=== PATIENT | male | born 1965 | race Caucasian/White ===

== ENCOUNTER 2023-05-15 15:16 | Outpatient (OUT) | payer OTHER, SELFPAY ==
--- NOTE | 2023-05-15 15:23 | XR_ITS ---
The [address] [address] Patient Name: GIOVANNI DEVLIN MRN: [id number] date: 1965 Sex: M Assigned Patient Location: [facility] Current Patient Location: Accession/Order Number: [id number] Exam Date: 05/15/2023 15:30 Report Date: 05/16/2023 07:07 At the request of: KAM ADAMS Procedure: XR lumbar spine 2-3V EXAMINATION: XR lumbar spine 2-3V HISTORY: back pain, left lower extremity radiculopathy COMPARISON: No relevant comparison available. FINDINGS: BONES: No acute fracture or spondylolisthesis. Minimal degenerative spondylosis and mild facet osteoarthropathy DISC SPACES: Normal. No significant disc height narrowing, subluxation, or endplate abnormality. PARASPINOUS: Negative. No paraspinous abnormality is seen. OTHER: Negative. XR/XR lumbar spine 2-3V IMPRESSION: No acute radiographic abnormality Electronically authenticated by: GIOVANNI GAFFNEY Date: 05/16/2023 07:07
== END 2023-05-15 15:17 | disposition home or self-care (01) ==
LOC: RAD 15:18
PROVIDERS: PCP Family Medicine; Visit Provider Family Medicine
DX: M54.50 Low back pain, unspecified (principal); M54.16 Radiculopathy, lumbar region
CPT/HCPCS: 72100

== ENCOUNTER 2023-05-21 20:22 | Emergency (ER) | payer OTHER, SELFPAY ==
[2023-05-21 20:28] VITALS: BP 160/98; PULSE 98; RESP 16; TEMP 37; O2SAT 97; BMI 30.7
--- OUTSIDE RECORDS SUMMARY | 2023-05-21 20:28 | XMS_ITS | CCD ---
Author Name Unknown Address [address] [place] [address] Organization [facility] Care Team Providers Care Divemaster Name Role Phone Sasha Cha Unavailable DR KAM MANNING Attending Unavailable DR KAM MANNING Consulting Unavailable DR KAM MANNING Admitting Unavailable Shaylee Manning Unavailable Maryana Pires Unavailable Medications Current Medications Medication Drug Class(es) Dates Sig (Normalized) Sig (Original) amoxicillin 875 mg / clavulanate 125 mg oral tablet (1 source) Penicillin-class Antibacterial Start: 04-17-2022 take 1 tablet by mouth every twelve hours Amoxicillin-Pot Clavulanate 875-125 MG 1 tablet Orally every 12 hrs for 10 days Apr, Active cefdinir 300 mg oral capsule (1 source) Cephalosporin Antibacterial Start: 12-21-2022 take 1 capsule by mouth every twelve hours Cefdinir 300 MG 1 Tablet Orally bid for 10 days Dec, Active cyclobenzaprine hydrochloride 10 mg oral tablet (1 source) Muscle Relaxant Start: 02-20-2021 take 1 tablet by mouth every eight hours Cyclobenzaprine HCl 10 MG 1 tablet as needed Orally Three times a day for 10 days Feb, Active dextromethorphan hydrobromide 15 mg / guaiFENesin 400 mg / pseudoephedrine hydrochloride 60 mg oral tablet (2 sources) alpha-Adrenergic Agonist, Uncompetitive E-fcitnc-V-aspartat e Receptor Antagonist, Sigma-1 Agonist Start: 12-18-2022 take 4 tablets by mouth every twenty-four hours as needed Capmist DM 60-15-400 MG as needed Orally every 4-6 hours as needed, max 4 tablets in 24 hours for 5 days Dec, Active fluticasone propionate 0.05 mg/actuat metered dose nasal spray (1 source) Corticosteroid Start: 04-17-2022 take 1 spray(s) nasal route once daily Fluticasone Propionate 50 MCG/ACT 1 spray in each nostril Nasally Once a day for 21 days Apr, Active predniSONE 20 mg oral tablet (2 sources) Start: 12-18-2022 take 1 tablet by mouth every twelve hours prednisone 20 MG 1 tablet Orally BID for 5 12 Dec, 2022 Active Completed/Discontinued Medications Medication Drug Class(es) Dates Sig (Normalized) Sig (Original) azithromycin 250 mg oral tablet (3 sources) Macrolide Antimicrobial Start: 3 Azithromycin 250 MG 2 tablets on the first day, then 1 tablet daily for 4 days Orally Once a day for 5 day(s) May, Not-Taking methylPREDNISolone 4 mg oral tablet (4 sources) Corticosteroid Start: 3 methylPREDNISolone 4 MG as directed Orally Once a day for 6 days May, Not-Taking Start: 02-20-2021 methylPREDNISo lone 4 MG as directed Orally Once a day for 6 days Feb, Active oseltamivir 75 mg oral capsule (2 sources) Neuraminidase Inhibitor Start: 01-18-2019 take 1 capsule by mouth every twelve hours Tamiflu 75 MG 1 capsule Orally Twice a day for 5 day(s) Jan, Not-Taking Problems Problem Classification Problem Date Documented Da te Episodic/Chronic Chronic obstructive pulmonary disease and bronchiectasis (1 source) Bronchitis, not specified as acute or chronic Episodic Other upper respiratory infections (4 sources) Acute sinusitis, unspecified; Translations: [Acute upper respiratory infection, unspecified] Episodic Spondylosis; intervertebral disc disorders; other back problems (6 sources) Sciatica; Translations: [Sciatica, left side] Onset: 02-20-2021 Resolved: 02-20-2021 Episodic Viral infection (1 source) Other viral agents as the cause of diseases classified elsewhere Episodic Results Test Name Value Interpretation Reference Range Facility COVID Quick Testingon 2022 Result Negative [facility] Other Quick Strepon 12-18-2022 S. pyogenes Org specific cx Ql (Throat) Negative [facility] Other Quick Strep [facility] Other [facility] CBC AUTO DIFFon 11-23-2021 BASO # 0.0 103/ul Normal 0.0-0.1 [facility] Comment on above: Performed By: #### H FPFCBC #### [facility] [address] [place] [address] Dr. Tala Lees Basophils/100 WBC (Bld) 0.6 % Normal 0.2-2.0 [facility] Comment on above: Performed By: #### H FPFCBC #### [facility] [address] [place] [address] Dr. Tala Lees EO # 0.1 103/ul Normal 0.0-0.7 [facility] Comment on above: Performed By: #### H FPFCBC #### [facility] [address] [place] [address] Dr. Tala Lees Eosinophils/100 WBC (Bld) 1.3 % Normal 0.9-7.0 [facility] Comment on above: Performed By: #### H FPFCBC #### [facility] [address] [place] [address] Dr. Tala Lees Erythrocyte distribution width (RBC) [Ratio] 12.2 % Normal 11.0-15.0 [facility] Comment on above: Performed By: #### H FPFCBC #### [facility] [address] [place] [address] Dr. Tala Lees Hematocrit (Bld) [Volume fraction] 45.3 % Normal 42.0-54.0 [facility] Comment on above: Performed By: #### H FPFCBC #### [facility] [address] [place] [address] Dr. Tala Lees Hemoglobin (Bld) [Mass/Vol] 15.8 g/dL Normal 14.0-18.0 [facility] Comment on above: Performed By: #### H FPFCBC #### [facility] [address] [place] [address] Dr. Tala Lees IG # 0.02 10e3/ul Normal 0.00-0.03 [facility] Comment on above: Performed By: #### H FPFCBC #### [facility] [address] [address] [address] Tala Lees IG % 0.3 % Normal 0.0-0.5 [facility] Comment on above: Performed By: #### H FPFCBC #### [facility] [address] [address] [address] Tala Lees LYMPH # 1.4 103/ul Normal 1.2-3.8 [facility] Comment on above: Performed By: #### H FPFCBC #### [facility] [address] [place] [address] Dr. Tala Lees Lymphocytes/100 WBC (Bld) 21.9 % Normal 20.5-60.0 [facility] Comment on above: Performed By: #### H FPFCBC #### [facility] [address] [place] [address] Dr. Tala Lees MCH (RBC) [Entitic mass] 30.8 pg Normal 25.9-34.0 [facility] Comment on above: Performed By: #### H FPFCBC #### [facility] [address] [place] [address] Dr. Tala Lees MCHC (RBC) [Mass/Vol] 34.9 g/dL Normal 29.9-35.2 [facility] Comment on above: Performed By: #### H FPFCBC #### [facility] [address] [place] [address] Dr. Tala Lees MCV (RBC) [Entitic vol] 88.3 fL Normal 80.0-94.0 [facility] Comment on above: Performed By: #### H FPFCBC #### [facility] [address] [place] [address] Dr. Tala Lees MONO # 0.7 103/ul Normal 0.3-0.8 [facility] Comment on above: Performed By: #### H FPFCBC #### [facility] [address] [place] [address] Dr. Tala Lees Monocytes/100 WBC (Bld) 10.7 % Normal 1.7-12.0 [facility] Comment on above: Performed By: #### H FPFCBC #### [facility] [address] [address] [address] Tala Lees NEUT # 4.1 103/ul Normal 1.4-6.5 [facility] Comment on above: Performed By: #### H FPFCBC #### [facility] [address] [address] [address] Tala Lees Neutrophils/100 WBC (Bld) 65.2 % Normal 43.0-75.0 [facility] Comment on above: Performed By: #### H FPFCBC #### [facility] [address] [address] [address] Tala Lees Platelet mean volume (Bld) [Entitic vol] 10.7 fL Normal 9.5-13.5 [facility] Comment on above: Performed By: #### H FPFCBC #### [facility] [address] [address] [address] Tala Lees PLT 215 103/ul Normal 150-450 [facility] Comment on above: Performed By: #### H FPFCBC #### [facility] [address] [address] [address] Tala Lees RBC 5.13 106/ul Normal 4.70-6.10 [facility] Comment on above: Performed By: #### H FPFCBC #### [facility] [address] [address] [address] Tala Lees WBC 6.4 103/ul Normal 4.0-11.0 [facility] Comment on above: Performed By: #### H FPFCBC #### [facility] [address] [address] [address] Taal Lees [employer] PROFILE (MALE)on 11-23-2021 Albumin [Mass/Vol] 4.1 g/dL Normal 3.4-5.0 [facility] Comment on above: Performed By: #### H FPFM #### [facility] [address] [place] [address] Dr. Tala Lees Albumin/Globulin [Mass ratio] 1.1 {ratio} Normal [facility] Comment on above: Performed By: #### H FPFM #### [facility] [address] [place] [address] Dr. Tala Lees ALP [Catalytic activity/Vol] 82 U/L Normal 46-116 [facility] Comment on above: Performed By: #### H FPFM #### [facility] [address] [address] [address] Tala Lees ALT [Catalytic activity/Vol] 49 U/L Normal 16-63 [facility] Comment on above: Performed By: #### H FPFM #### [facility] [address] [address] [address] Tala Lees AST [Catalytic activity/Vol] 27 U/L Normal 15-37 [facility] Comment on above: Performed By: #### H FPFM #### [facility] [address] [place] [address] Dr. Tala Lees Bilirubin [Mass/Vol] 1.2 mg/dL Critically high 0.2-1.0 [facility] Comment on above: Performed By: #### H FPFM #### [facility] [address] [place] [address] Dr. Tala Lees Calcium [Mass/Vol] 8.7 mg/dL Normal 8.5-10.1 [facility] Comment on above: Performed By: #### H FPFM #### [facility] [address] [place] [address] Dr. Tala Lees Chloride [Moles/Vol] 103 mmol/L Normal 98-107 [facility] Comment on above: Performed By: #### H FPFM #### [facility] [address] [address] [address] Tala Lees CHOL-HDL RATIO NORM SEE BELOW Normal [facility] Comment on above: Result Comment: 3.3 - 4.4 LOW RISK 4.4 - 7.1 AVERAGE RISK 7.1 - 11.0 MODERATE RISK >11.0 HIGH RISK Performed By: #### H FPFM #### [facility] [address] [place] [address] Dr. Tala Lees Cholesterol [Mass/Vol] 198 mg/dL Normal <=200 [facility] Comment on above: Performed By: #### H FPFM #### [facility] [address] [place] [address] Dr. Tala Lees Cholesterol in HDL [Mass/Vol] 45 mg/dL Normal 40-60 [facility] Comment on above: Performed By: #### H FPFM #### [facility] [address] [address] [address] Tala Lees Cholesterol in LDL [Mass/Vol] 127.0 mg/dL Normal [facility] Comment on above: Performed By: #### H FPFM #### [facility] [address] [place] [address] Dr. Tala Lees Cholesterol.total/ Cholesterol in HDL [Mass ratio] 4.4 {ratio} Normal [facility] Comment on above: Performed By: #### H FPFM #### [facility] [address] [place] [address] Dr. Tala Lees CO2 [Moles/Vol] 27.4 mmol/L Normal 21.0-32.0 [facility] Comment on above: Performed By: #### H FPFM #### [facility] [address] [place] [address] Dr. Tala Lees Creatinine [Mass/Vol] 1.17 mg/dL Normal 0.70-1.30 [facility] Comment on above: Performed By: #### H FPFM #### [facility] [address] [place] [address] Dr. Tala Lees Globulin (S) [Mass/Vol] 3.8 g/dL Normal [facility] Comment on above: Performed By: #### H FPFM #### [facility] [address] [place] [address] Dr. Tala Lees Glucose [Mass/Vol] 96 mg/dL Normal 74-106 [facility] Comment on above: Performed By: #### H FPFM #### [facility] [address] [place] [address] Dr. Tala Lees HDL NORMAL > or = 60 mg/dl - LOW CARDIOVASCULAR RISK <40 mg/dl - HIGH CARDIOVASCULAR RISK Normal [facility] Comment on above: Performed By: #### H FPFM #### [facility] [address] [address] [address] Tala Lees LDL CALC NORMAL SEE BELOW Normal [facility] Comment on above: Result Comment: <100 mg/dl OPTIMAL 100 - 129 mg/dl NEAR OR ABOVE OPTIMAL 130 - 159 mg/dl BORDERLINE HIGH 160 - 189 mg/dl HIGH >190 mg/dl VERY HIGH Performed By: #### H FPFM #### [facility] [address] [address] [address] Tala Lees Potassium [Moles/Vol] 3.7 mmol/L Normal 3.5-5.1 [facility] Comment on above: Performed By: #### H FPFM #### [facility] [address] [place] [address] Dr. Tala Lees Protein [Mass/Vol] 7.9 g/dL Normal 6.4-8.2 [facility] Comment on above: Performed By: #### H FPFM #### [facility] [address] [address] [address] Tala Lees Sodium [Moles/Vol] 141 mmol/L Normal 136-145 [facility] Comment on above: Performed By: #### H FPFM #### [facility] [address] [address] [address] Tala Lees Triglyceride [Mass/Vol] 130 mg/dL Normal <=150 [facility] Comment on above: Performed By: #### H FPFM #### [facility] [address] [address] [address] Tala Lees TSH 3.459 uIU/mL Normal 0.358-3.740 [facility] Comment on above: Performed By: #### H FPFM #### [facility] [address] [address] [address] Tala Lees Urea nitrogen [Mass/Vol] 16.0 mg/dL Normal 7.0-18.0 [facility] Comment on above: Performed By: #### H FPFM #### [facility] [address] [address] [address] Tala Lees Urea nitrogen/Creatinin e [Mass ratio] 13.7 mg/mg Normal [facility] Comment on above: Performed By: #### H FPFM #### [facility] [address] [address] [address] Tala Lees VLDL CALC 26.0 mg/dL Normal [facility] Comment on above: Performed By: #### H FPFM #### [facility] [address] [address] [address] Tala Lees Vital Signs Date Time Vital Sign Value Performing Clinician Facility 12-18-2022 16:15-0400 Body height 181.61 cm Shaylee Manning Other [facility] Other 12-18-2022 16:15-0400 Body mass index (BMI) [Ratio] 29.98 kg/m2 Shaylee Manning Other [facility] Other 12-18-2022 16:15-0400 Body temperature 98.7 [degF] Shaylee Manning Other [facility] Other 12-18-2022 16:15-0400 Body weight 98.88 kg Shaylee Manning Other [facility] Other 12-18-2022 16:15-0400 Diastolic blood pressure 72 mm[Hg] Shaylee Manning Other [facility] Other 12-18-2022 16:15-0400 Respiratory rate 18 /min Shaylee Manning Other [facility] Other 12-18-2022 16:15-0400 SaO2% (BldA) [Mass fraction] 98 % Shaylee Manning Other [facility] Other 12-18-2022 16:15-0400 Systolic blood pressure 123 mm[Hg] Shaylee Manning Other [facility] Other 06-05-2022 15:35-0500 Body height 181.61 cm Sasha Cha Other [facility] Other 06-05-2022 15:35-0500 Body mass index (BMI) [Ratio] 28.88 kg/m2 Sasha Chaudhariault Other [facility] Other 06-05-2022 15:35-0500 Body temperature 97.7 [degF] Sasha Chaudhariault Other [facility] Other 06-05-2022 15:35-0500 Body weight 95.26 kg Sasha Chaudhariault Other [facility] Other 06-05-2022 15:35-0500 Respiratory rate 18 /min Sasha Cha Other [facility] Other 06-05-2022 15:35-0500 SaO2% (BldA) [Mass fraction] 97 % Sasha Chaudhariault Other [facility] Other 03-29-2022 11:30-0500 Body height 181.61 cm Sasha Chaudhariault Other [facility] Other 03-29-2022 11:30-0500 Body mass index (BMI) [Ratio] 28.88 kg/m2 Sasha Chaudhariault Other [facility] Other 03-29-2022 11:30-0500 Body temperature 97.8 [degF] Sasha Semaj Other [facility] Other 03-29-2022 11:30-0500 Body weight 95.26 kg Sasha Cha Other [facility] Other 03-29-2022 11:30-0500 Respiratory rate 18 /min Sasha Cha Other [facility] Other 03-29-2022 11:30-0500 SaO2% (BldA) [Mass fraction] 98 % Sasha Cha Other [facility] Other 02-20-2021 16:25-0500 Body height 181.61 cm Sasha Cha Other [facility] Other 02-20-2021 16:25-0500 Body mass index (BMI) [Ratio] 29.26 kg/m2 Sasha Cha Other [facility] Other 02-20-2021 16:25-0500 Body temperature 98.2 [degF] Sasha Cha Other [facility] Other 02-20-2021 16:25-0500 Body weight 96.53 kg Sasha Cha Other [facility] Other 02-20-2021 16:25-0500 Diastolic blood pressure 79 mm[Hg] Sasha Cha Other [facility] Other 02-20-2021 16:25-0500 Respiratory rate 18 /min Sasha Chaudhariault Other [facility] Other 02-20-2021 16:25-0500 SaO2% (BldA) [Mass fraction] 98 % Sasha Cha Other [facility] Other 02-20-2021 16:25-0500 Systolic blood pressure 125 mm[Hg] Sasha Cha Other [facility] Other Encounters Encounter Date Encounter Type Care Provider Facility Start: 12-21-2022 End: 12-21-2022 ambulatory Maryana Pires Other [facility] Other Start: 12-21-2022 Telephone encounter Maryana LEAHY [facility] Start: 12-18-2022 End: 12-18-2022 ambulatory Shaylee Manning Other [facility] Other Start: 12-18-2022 Office outpatient visit 25 minutes Shaylee Manning [facility] Start: 06-05-2022 End: 06-05-2022 ambulatory Sasha Chaudhariault Other [facility] Other Start: 06-05-2022 Office outpatient visit 15 minutes Sasha Semaj [facility] Start: 03-29-2022 End: 03-29-2022 ambulatory Sasha Chaudhariault Other [facility] Other Start: 03-29-2022 Office outpatient visit 25 minutes Sasha Semaj [facility] Start: 11-23-2021 End: 11-24-[address] KAM MANNING Facility:[facility] Start: 02-20-2021 End: 02-20-2021 ambulatory Sasha Chaudhariault Other [facility] Other Start: 02-20-2021 Office outpatient visit 15 minutes Sasha Semaj [facility] Procedures Date Procedure Procedure Detail Performing Clinician Start: 11-23-[address] LORI MANNING Comment on above: Performed By: #### H FPFM #### [facility] [address] [place], [place] [address] Dr. Tala Lees Payers Date Payer Category Payer Self-pay [id number] Unknown [id number] [id number] Unknown [id number] Social History Date Type Detail Facility Unknown if ever smoked [facility] Other Sex Assigned At Sex Assigned At Bir th [facility] Other Evaluation note 12-18-2022 Note Date & Type Note Facility 12-18-2022 Evaluation note Encounter Date Diagnosis Assessment Notes Dec, Acute sinusitis, unspecified (ICD-10 - J01.90) Advised patient that rapid COVID and rapid strep test were both negative today in office. Discussed diagnosis with patient today. Will treat as viral at this time based on physical exam and duration of symptoms. Advised patient viral syndromes last 7-10 days. If symptoms do not improve in the next 3-4 days patient may call UC and I will send antibiotic. Patient requests cefdinir, states that it works well for him. We will send in Rx twice daily x10 days if no improvement of symptoms. Encouraged supportive care as directed today. Push fluids/rest, nasal saline washes as directed, may use Tylenol or Motrin as needed for discomfort, Rx of prednisone and Capmist. Patient to follow up with PCP or UC for any new or worsening symptoms. Immediate eval if SOB, wheezing, difficulty breathing, or other concerning symptoms. Patient verbalizes understanding and is agreeable to treatment plan. Dec, Other viral agents as the cause of diseases classified elsewhere (ICD-10 - B97.89) Dec, Sore throat (ICD-10 - J02.9) [facility] Other Evaluation note 06-05-2022 Note Date & Type Note Facility 06-05-2022 Evaluation note Encounter Date Diagnosis Assessment Notes May, Bronchitis (ICD-10 - J40) Take medications as directed. Rest and increase fluid intake. Take meds with food to prevent stomach upset. Follow up with primary care provider if symptoms do not improve with treatment plan, although it may take a few weeks for the cough to go away. Recommend Mucinex DM for cough along with prescription medications. [facility] Other Evaluation note 03-29-2022 Note Date & Type Note Facility 03-29-2022 Evaluation note Encounter Date Diagnosis Assessment Notes Mar, Acute sinusitis, unspecified (ICD-10 - J01.90) Mar, Viral URI (ICD-10 - J06.9) Symptoms appear viral today. Bacteria infections take several days to weeks of symptoms to develop. Use saline nasal spray before prescription one and you have better results. Recommend OTC medications such as Mucinex DM, Delsym, Cepocal Lozenges Continue tylenol/ibuprof en for general discomfort. Encourage fluids. Symptoms should improve within the next 10-14 days. If no improvement of symptoms in 14 days call primary care provider to discuss antibiotic therapy [facility] Other Evaluation note 02-20-2021 Note Date & Type Note Facility 02-20-2021 Evaluation note Encounter Date Diagnosis Assessment Notes Feb, Sciatica of left side (ICD-10 - M54.32) Take medications as directed. Use caution when operating machinery with muscle relaxer as it may cause drowsiness. Alternating heat and ice to area 3-4 times per day. Rest a lot Follow up with primary care if there is no symptom improvement within the next week, sooner if symptoms worsen or new symptoms occur. [facility] Other Evaluation note Note Date & Type Note Facility Evaluation note No Information [facility] Other History general Narrative - Reported Note Date & Type Note Facility History general Narrative - Reported Type Hospitalization History pneumothorax left side [facility] Other Summary Purpose Family History No Family History Records Found Advance Directives No Advanced Directives Records Found Additional Source Comments REASON FOR VISIT (unrecogniz ed section and content) BACK PAINB/A CONGESTION COUG HCOUGH, YELLOW PHLEGMSORE THROAT, COUGH, NO FEVER, MUCUSAntibiotic (unrecognized sect ion and content) No Status Records Found INFORMATION SOURCE (unrecogn ized section and content) DATE CREATED AUTHOR 11/29/2021 [facility] FOR RECORDS PERTAINING TO PATIENTS WHO ARE OR HAVE BEEN ENROLLED IN A CHEMICAL DEPENDENCY/SUBSTANCEABUSE PROGRAM, SOME INFORMATION MAY BE OMITTED. This clinical summary was aggregated from multiple sources. Caution should be exercised in using it in the provision of clinical care. This summary normalizes information from multiple sources, and as a consequence, information in this document may materially change the coding, format and clinical context of patient data. In addition, data may be omitted in some cases. CLINICAL DECISIONS SHOULD BE BASED ON THE PRIMARY CLINICAL RECORDS. [employer] [facility]. provides no warranty or guarantee of the accuracy or completeness of information in this document.
--- NOTE | 2023-05-21 20:35 | ED.GENADUL1 ---
HPI - General Adult General Chief complaint: Extremity Problem, Nontraumatic Stated complaint: Ingrown Toenail Time Seen by Provider: 05/21/23 20:27 Source: patient Mode of arrival: walk-in Limitations: no limitations History of Present Illness HPI narrative: Patient is a 57-year-old male who presents to the emergency department for the evaluation of a possible ingrown toenail. He states since yesterday he has Had redness and tenderness to the base of the Toenail of the right middle toe. There has been no drainage. He has no redness or swelling of the distal toenail. He states he tried trimming his nails without improvement. There has been no drainage or injury. No fevers or vomiting. No history of diabetes Related Data Previous Rx's Medication Instructions Recorded cephalexin 500 mg capsule 500 mg PO Q8H 10 days #30 caps 05/21/23 mupirocin 2 % topical ointment 1 applic topical BID #15 grams 05/21/23 Allergies Allergy/AdvReac Type Severity Reaction Status Date / Time clindamycin AdvReac Mild Verified 05/21/23 20:28 Review of Systems ROS Constitutional Denies: fever or chills Ears, nose, mouth, and throat Denies: throat pain or nasal congestion Respiratory Denies: shortness of breath Gastrointestinal Denies: nausea or vomiting Musculoskeletal Reports: extremity pain Integumentary/Breast Reports: redness, skin pain and skin tenderness; Denies: rash Endocrine Denies: excessive urination Hematologic/Lymphatic Denies: easy bruising Allergic/Immunologic Denies: hives [facility] Social History Smoking status: Never smoker Exam Narrative Exam Narrative: Gen.: Awake, alert, in no distress Head: Normocephalic, atraumatic ENT: Moist mucous membranes Respiratory: No respiratory distress Extremities: Moves extremities equally, Right middle toe with redness and minimal swelling at the proximal aspect of the toenail bed at the cuticle. There is no redness or swelling to the distal toe or plantar aspect of the toe. No open wounds or drainage. No paronychia noted. No evidence of an ingrown toenail on exam Psych: Normal mood and affect Neuro: No focal neuro deficit Skin: Warm, dry, intact Constitutional Vital Signs, click to edit/add: Last Vital Signs Temp 98.6 F 05/21/23 20:28 Pulse 98 H 05/21/23 20:28 Resp 16 05/21/23 20:28 BP 160/98 H 05/21/23 20:28 Pulse Ox 97 05/21/23 20:28 O2 Del Method Room Air 05/21/23 20:28 Course Vital Signs Vital signs: Vital Signs Temperature 98.6 F 05/21/23 20:28 Pulse Rate 98 H 05/21/23 20:28 Respiratory Rate 16 05/21/23 20:28 Blood Pressure 160/98 H 05/21/23 20:28 Pulse Oximetry 97 05/21/23 20:28 Oxygen Delivery Method Room Air 05/21/23 20:28 Temperature 98.6 F 05/21/23 20:28 Pulse Rate 98 H 05/21/23 20:28 Respiratory Rate 16 05/21/23 20:28 Blood Pressure 160/98 H 05/21/23 20:28 Pulse Oximetry 97 05/21/23 20:28 Oxygen Delivery Method Room Air 05/21/23 20:28 Medical Decision Making MDM Narrative Medical decision making narrative: Patient treated for mild cellulitis of the right middle toe, no evidence of paronychia requiring drainage or ingrown toenail at this time. Follow-up with podiatry. Keflex and Bactroban given for home. Warm soaks encouraged. Return to the ER if symptoms change or worsen Medical Records Medical records reviewed: Yes I reviewed the patient's medical records Discharge Plan Discharge Chief Complaint: Extremity Problem, Nontraumatic Clinical Impression: Cellulitis Patient Disposition: Home, Self-Care Time of Disposition Decision: 20:33 Condition: Good Prescriptions / Home Meds: New cephalexin 500 mg capsule 500 mg PO Q8H 10 Days Qty: 30 0RF mupirocin 2 % ointment 1 applic topical BID Qty: 15 0RF Instructions: Cellulitis (ED), Warm Compress or Soak (ED) Stand Alone Forms: Portal Instructions Referrals: Shaquille Coyne DPM [Physician] - 1 week KAM ADAMS [Primary Care Provider] - 1 week Discharge Date/Time: 05/21/23 20:46
[2023-05-21] MEDS: CEPHALEXIN 500 MG CAPSULE PO (20:43)
== END 2023-05-21 20:46 | disposition home or self-care (01) ==
PROVIDERS: Emergency Provider Emergency Medicine; PCP Family Medicine
DX: L03.031 Cellulitis of right toe (principal)
CPT/HCPCS: 99283

== ENCOUNTER 2024-06-08 15:53 | Emergency (ER) | payer OTHER, SELFPAY ==
[2024-06-08] VITALS (28 sets, daily range): BP systolic 127–152; BP diastolic 75–91; PULSE 70–85; O2SAT 97–100; BMI 30.7
--- OUTSIDE RECORDS SUMMARY | 2024-06-08 16:20 | XMS_ITS | CCD ---
Author Organization [facility] Care Team Providers Care Solar Panel Technician Name Role Phone SemajSasha Unavailable DR KAM MANNING Attending Unavailable DR [...] Orally bid for 10 days Dec, Active cephalexin 500 mg oral capsule (1 source) Cephalosporin Antibacterial Start: 05-29-2023 take 500 mg by mouth every eight hours Cephalexin Active 500 MG PO Every 8 hours May 29, 2023 12:00am cyclobenzaprine hydrochloride 10 mg oral tablet (1 source) Muscle Relaxant Start: 02-20-2021 take 1 tablet by mouth every eight hours Cyclobenzaprine HCl 10 MG 1 tablet as needed Orally Three times a day for 10 days Feb, Active dextromethorphan hydrobromide 15 mg / guaiFENesin 400 mg / pseudoephedrine hydrochloride 60 mg oral tablet (2 sources) alpha-Adrenergic Agonist, Uncompetitive A-bkweoe-L-aspartat e Receptor Antagonist, Sigma-1 Agonist Start: 12-18-2022 [...] a day for 21 days Apr, Active mupirocin 0.02 mg/mg topical ointment (1 source) RNA Synthetase Inhibitor Antibacterial Start: 05-29-2023 Mupirocin Active APPLIC TOPICAL May 29, 2023 12:00am predniSONE 20 mg oral tablet (2 sources) Start: 12-18-2022 take 1 tablet by mouth every twelve hours prednisone 20 MG 1 tablet Orally BID for 5 Dec, Active Completed/Discontinued Medications Medication Drug Class(es) Dates [...] not specified as acute or chronic Episodic Immunizations and screening for infectious disease (2 sources) Contact with or exposure to other viral diseases; Translations: [Contact with or suspected exposure to severe acute respiratory syndrome coronavirus 2] 05-29-2023 Episodic Influenza (2 sources) Influenza due to Influenza A virus; Translations: [Influenza due to other identified influenza virus with other respiratory manifestations] 05-29-2023 Episodic Other upper respiratory infections (4 sources) Acute sinusitis, unspecified; Translations: [Acute upper respiratory infection, unspecified] Episodic Spondylosis; intervertebral disc disorders; other back problems (6 sources) Sciatica; Translations: [Sciatica, left side] Onset: 02-20-2021 Resolved: 02-20-2021 Episodic Viral infection (1 source) Other viral agents as the cause of diseases classified elsewhere Episodic Results Test Name Value Interpretation Reference Range Facility Laboratory - Microbiology an d Antimicrobial susceptibilityOrdered By: Maryana Pires on 05-29-2023 SARS-CoV-2 (COVID-19) RNA JASPER+probe Ql (Unsp spec) [facility] COVID Quick Testingon 2022 Result Negative [facility] [employer] Other Quick Strepon 12-18-2022 S. pyogenes Org specific cx Ql (Throat) Negative [facility] [employer] Other Quick Strep [facility] [employer] Other [facility] CBC AUTO DIFFon 11-23-2021 BASO # 0.0 103/ul Normal 0.0-0.1 [facility] Comment on above: Performed By: #### H FPFCBC #### [facility] [address] [address] [address] Tala Lees Basophils/100 WBC (Bld) 0.6 % Normal 0.2-2.0 [facility] Comment on above: Performed By: #### H FPFCBC #### [facility] [address] [address] [address] Tala Lees EO # 0.1 103/ul Normal 0.0-0.7 [facility] Comment on above: Performed By: #### H FPFCBC #### [facility] [address] [address] [address] Tala Lees Eosinophils/100 WBC (Bld) 1.3 % Normal 0.9-7.0 [facility] Comment on above: Performed By: #### H FPFCBC #### [facility] [address] [address] [address] Tala Lees Erythrocyte distribution width (RBC) [Ratio] 12.2 % Normal 11.0-15.0 [facility] Comment on above: Performed By: #### H FPFCBC #### [facility] [address] [place] [address] Dr. Tala Lees Hematocrit (Bld) [Volume fraction] 45.3 % Normal 42.0-54.0 [facility] Comment on above: Performed By: #### H FPFCBC #### [facility] [address] [place] [address] Dr. Tala Lees Hemoglobin (Bld) [Mass/Vol] 15.8 g/dL Normal 14.0-18.0 [facility] Comment on above: Performed By: #### H FPFCBC #### [facility] [address] [place] [address] Dr. Tala Lees IG # 0.02 10e3/ul Normal 0.00-0.03 [facility] Comment on above: Performed By: #### H FPFCBC #### [facility] [address] [place] [address] Dr. Tala Lees IG % 0.3 % Normal 0.0-0.5 [facility] Comment on above: Performed By: #### H FPFCBC #### [facility] [address] [place] [address] Dr. Tala Lees LYMPH # 1.4 103/ul Normal 1.2-3.8 [facility] Comment on above: Performed By: #### H FPFCBC #### [facility] [address] [place] [address] Dr. Tala Lees Lymphocytes/100 WBC (Bld) 21.9 % Normal 20.5-60.0 [facility] Comment on above: Performed By: #### H FPFCBC #### [facility] [address] [place] [address] Dr. Tala Lees MCH (RBC) [Entitic mass] 30.8 pg Normal 25.9-34.0 [facility] Comment on above: Performed By: #### H FPFCBC #### [facility] [address] [place] [address] Dr. Tala Lees MCHC (RBC) [Mass/Vol] 34.9 g/dL Normal 29.9-35.2 [facility] Comment on above: Performed By: #### H FPFCBC #### [facility] [address] [place] [address] Dr. Tala Lees MCV (RBC) [Entitic vol] 88.3 fL Normal 80.0-94.0 [facility] Comment on above: Performed By: #### H FPFCBC #### [facility] [address] [place] [address] Dr. Tala Lees MONO # 0.7 103/ul Normal 0.3-0.8 [facility] Comment on above: Performed By: #### H FPFCBC #### [facility] [address] [place] [address] Dr. Tala Lees Monocytes/100 WBC (Bld) 10.7 % Normal 1.7-12.0 [facility] Comment on above: Performed By: #### H FPFCBC #### [facility] [address] [place] [address] Dr. Tala Lees NEUT # 4.1 103/ul Normal 1.4-6.5 [facility] Comment on above: Performed By: #### H FPFCBC #### [facility] [address] [place] [address] Dr. Tala Lees Neutrophils/100 WBC (Bld) 65.2 % Normal 43.0-75.0 [facility] Comment on above: Performed By: #### H FPFCBC #### [facility] [address] [place] [address] Dr. Tala Lees Platelet mean volume (Bld) [Entitic vol] 10.7 fL Normal 9.5-13.5 [facility] Comment on above: Performed By: #### H FPFCBC #### [facility] [address] [place] [address] Dr. Tala Lees PLT 215 103/ul Normal 150-450 [facility] Comment on above: Performed By: #### H FPFCBC #### [facility] [address] [place] [address] Dr. Tala Lees RBC 5.13 106/ul Normal 4.70-6.10 [facility] Comment on above: Performed By: #### H FPFCBC #### [facility] [address] [place] [address] Dr. Tala Lees WBC 6.4 103/ul Normal 4.0-11.0 [facility] Comment on above: Performed By: #### H FPFCBC #### [facility] [address] [place] [address] Dr. Tala Lees [facility] (M[facility])on 11-23-2021 Albumin [Mass/Vol] 4.1 g/dL Normal 3.4-5.0 [facility] Comment on above: Performed By: #### H FPFM #### [facility] [address] [place] [address] Dr. Tala Lees Albumin/Globulin [Mass ratio] 1.1 {ratio} Normal [facility] Comment on above: Performed By: #### H FPFM #### [facility] [address] [place] [address] Dr. Tala Lees ALP [Catalytic activity/Vol] 82 U/L Normal 46-116 [facility] Comment on above: Performed By: #### H FPFM #### [facility] [address] [place] [address] Dr. Tala Lees ALT [Catalytic activity/Vol] 49 U/L Normal 16-63 [facility] Comment on above: Performed By: #### H FPFM #### [facility] [address] [place] [address] Dr. Tala Lees AST [Catalytic activity/Vol] 27 U/L Normal 15-37 [facility] Comment on above: Performed By: #### H FPFM #### [facility] [address] [place] [address] Dr. Tala Lees Bilirubin [Mass/Vol] 1.2 mg/dL Critically high 0.2-1.0 [facility] Comment on above: Performed By: #### H FPFM #### [facility] [address] [place] [address] Dr. Tala Lees Calcium [Mass/Vol] 8.7 mg/dL Normal 8.5-10.1 [facility] Comment on above: Performed By: #### H FPFM #### [facility] [address] [address] [address] Tala Lees Chloride [Moles/Vol] 103 mmol/L Normal 98-107 [facility] Comment on above: Performed By: #### H FPFM #### [facility] [address] [address] [address] Tala Lees CHOL-HDL RATIO NORM SEE BELOW Normal [facility] Comment on above: Result Comment: 3.3 - 4.4 LOW RISK 4.4 - 7.1 AVERAGE RISK 7.1 - 11.0 MODERATE RISK >11.0 HIGH RISK Performed By: #### H FPFM #### [facility] [address] [address] [address] Tala Lees Cholesterol [Mass/Vol] 198 mg/dL Normal <=200 [facility] Comment on above: Performed By: #### H FPFM #### [facility] [address] [address] [address] Tala Lees Cholesterol in HDL [Mass/Vol] 45 mg/dL Normal 40-60 [facility] Comment on above: Performed By: #### H FPFM #### [facility] [address] [address] [address] Tala Lees Cholesterol in LDL [Mass/Vol] 127.0 mg/dL Normal [facility] Comment on above: Performed By: #### H FPFM #### [facility] [address] [address] [address] Tala Lees Cholesterol.total/Cholest sheila in HDL [Mass ratio] 4.4 {ratio} Normal [facility] Comment on above: Performed By: #### H FPFM #### [facility] [address] [address] [address] Tala Lees CO2 [Moles/Vol] 27.4 mmol/L Normal 21.0-32.0 [facility] Comment on above: Performed By: #### H FPFM #### [facility] [address] [address] [address] Tala Lees Creatinine [Mass/Vol] 1.17 mg/dL Normal 0.70-1.30 [facility] Comment on above: Performed By: #### H FPFM #### [facility] [address] [address] [address] Tala Lees Globulin (S) [Mass/Vol] 3.8 g/dL Normal T [facility] Comment on above: Performed By: #### H FPFM #### [facility] [address] [address] [address] Tala Lees Glucose [Mass/Vol] 96 mg/dL Normal 74-106 [facility] Comment on above: Performed By: #### H FPFM #### [facility] [address] [place] [address] Dr. Tala Lees HDL NORMAL > or = 60 mg/dl - LOW CARDIOVASCULAR RISK <40 mg/dl - HIGH CARDIOVASCULAR RISK Normal [facility] Comment on above: Performed By: #### H FPFM #### [facility] [address] [address] [address] Tala Lees LDL CALC NORMAL SEE BELOW Normal [facility] Comment on above: Result Comment: <100 mg/dl OPTIMAL 100 - 129 mg/dl NEAR OR ABOVE OPTIMAL 130 - 159 mg/dl BORDERLINE HIGH 160 - 189 mg/dl HIGH >190 mg/dl VERY HIGH Performed By: #### H FPFM #### [facility] [address] [address] [address] Tala Lees Potassium [Moles/Vol] 3.7 mmol/L Normal 3.5-5.1 [facility] Comment on above: Performed By: #### H FPFM #### [facility] [address] [address] [address] Tala Lees Protein [Mass/Vol] 7.9 g/dL Normal 6.4-8.2 [facility] Comment on above: Performed By: #### H FPFM #### [facility] [address] [address] [address] Tala Lees Sodium [Moles/Vol] 141 mmol/L Normal 136-145 [facility] Comment on above: Performed By: #### H FPFM #### [facility] [address] [place] [address] Dr. Tala Lees Triglyceride [Mass/Vol] 130 mg/dL Normal <=150 T [facility] Comment on above: Performed By: #### H FPFM #### [facility] [address] [address] [address] Tala Lees TSH 3.459 uIU/mL Normal 0.358-3.740 [facility] Comment on above: Performed By: #### H FPFM #### [facility] [address] [place] [address] Dr. Tala Lees Urea nitrogen [Mass/Vol] 16.0 mg/dL Normal 7.0-18.0 [facility] Comment on above: Performed By: #### H FPFM #### [facility] [address] [place] [address] Dr. Tala Lees Urea nitrogen/Creatinine [Mass ratio] 13.7 mg/mg Normal [facility] Comment on above: Performed By: #### H FPFM #### [facility] [address] [place] [address] Dr. Tala Lees VLDL CALC 26.0 mg/dL Normal [facility] Comment on above: Performed By: #### H FPFM #### [facility] [address] [place] [address] Dr. Tala Lees Vital Signs Date Time Vital Sign Value Performing Clinician Facility 05-29-2023 11:55-0500 Body height 180.34 cm [facility] 05-29-2023 11:55-0500 Body mass index (BMI) [Ratio] 30.8 kg/m2 [facility] 05-29-2023 11:55-0500 Body temperature 98.7 [degF] [facility] 05-29-2023 11:55-0500 Body weight 100.24 kg [facility] 05-29-2023 11:55-0500 Diastolic blood pressure 71 mm[Hg] [facility] 05-29-2023 11:55-0500 Heart rate 96 /min [facility] 05-29-2023 11:55-0500 Respiratory rate 18 /min [facility] 05-29-2023 11:55-0500 SaO2% (BldA) [Mass fraction] 96 % [facility] 05-29-2023 11:55-0500 Systolic blood pressure 138 mm[Hg] [facility] 12-18-2022 16:15-0400 Body height 181.61 cm Shaylee Manning Other [facility] [facility] [employer] Other 12-18-2022 16:15-0400 Body mass index (BMI) [Ratio] 29.98 kg/m2 Shaylee Manning Other [employer] Other 12-18-2022 16:15-0400 Body temperature 98.7 [degF] Shaylee Manning Other [employer] Other 12-18-2022 16:15-0400 Body weight 98.88 kg Shaylee Manning Other [employer] Other 12-18-2022 16:15-0400 Diastolic blood pressure 72 mm[Hg] Shaylee Manning Other [employer] Other 12-18-2022 16:15-0400 Respiratory rate 18 /min Shaylee Manning Other [employer] Other 12-18-2022 16:15-0400 SaO2% (BldA) [Mass fraction] 98 % Shaylee Manning Other [employer] Other 12-18-2022 16:15-0400 Systolic blood pressure 123 mm[Hg] Shaylee Manning Other [employer] Other 06-05-2022 15:35-0500 Body height 181.61 cm Sasha Cha Other [employer] Other 06-05-2022 15:35-0500 Body mass index (BMI) [Ratio] 28.88 kg/m2 Sasha Cha Other [employer] Other 06-05-2022 15:35-0500 Body temperature 97.7 [degF] Sasha Chaudhariault Other [employer] Other 06-05-2022 15:35-0500 Body weight 95.26 kg Sasha Chaudhariault Other [employer] Other 06-05-2022 15:35-0500 Respiratory rate 18 /min Sasha Chaudhariault Other [employer] Other 06-05-2022 15:35-0500 SaO2% (BldA) [Mass fraction] 97 % Sasha Cha Other [employer] Other 03-29-2022 11:30-0500 Body height 181.61 cm Sasha Chaudhariault Other [employer] Other 03-29-2022 11:30-0500 Body mass index (BMI) [Ratio] 28.88 kg/m2 Sasha Chaudhariault Other [employer] Other 03-29-2022 11:30-0500 Body temperature 97.8 [degF] Sasha Chaudhariault Other [employer] Other 03-29-2022 11:30-0500 Body weight 95.26 kg Sasha Chaudhariault Other [employer] Other 03-29-2022 11:30-0500 Respiratory rate 18 /min Sasha Cha Other [employer] Other 03-29-2022 11:30-0500 SaO2% (BldA) [Mass fraction] 98 % Sasha Semaj Other [employer] Other 02-20-2021 16:25-0500 Body height 181.61 cm Sasha Cha Other [employer] Other 02-20-2021 16:25-0500 Body mass index (BMI) [Ratio] 29.26 kg/m2 Sasha Cha Other [employer] Other 02-20-2021 16:25-0500 Body temperature 98.2 [degF] Sasha Chaudhariault Other [employer] Other 02-20-2021 16:25-0500 Body weight 96.53 kg Sasha Cha Other [employer] Other 02-20-2021 16:25-0500 Diastolic blood pressure 79 mm[Hg] Sasha Semaj Other [employer] Other 02-20-2021 16:25-0500 Respiratory rate 18 /min Sasha Chaudhariault Other [employer] Other 02-20-2021 16:25-0500 SaO2% (BldA) [Mass fraction] 98 % Sasha Semaj Other [employer] Other 02-20-2021 16:25-0500 Systolic blood pressure 125 mm[Hg] Sasha Semaj Other [employer] Other Encounters Encounter Date Encounter Type Care Provider Facility Start: 05-29-2023 End: 05-29-2023 ambulatory [facility] Work Phone: Start: 05-29-2023 End: 05-29-2023 Patient encounter procedure [facility] Physician [facility] Work Phone: Start: 12-21-2022 End: 12-21-2022 ambulatory Maryana Pires Other [employer] Other Start: 12-21-2022 Telephone encounter Maryana Pires [facility] Start: 12-18-2022 End: 12-18-2022 ambulatory Shaylee Manning Other [employer] Other Start: 12-18-2022 Office outpatient visit 25 minutes Shaylee Manning [facility] Start: 06-05-2022 End: 06-05-2022 ambulatory Sasharamonita Cha Other [employer] Other Start: 06-05-2022 Office outpatient visit 15 minutes Sasha Semaj [facility] Start: 03-29-2022 End: 03-29-2022 ambulatory Sasha Cha Other [facility] Other Start: 03-29-2022 Office outpatient visit 25 minutes Sasha Semaj [facility] Start: 11-23-2021 End: 11-24-[address] KAM MANNING Facility:[facility] Start: 02-20-2021 End: 02-20-2021 ambulatory Sasha Semaj Other [facility] Other Start: 02-20-2021 Office outpatient visit 15 minutes Sasha Semaj [facility] Procedures Date Procedure Procedure Detail Performing Clinician Start: 05-29-2023 POC COVID/FLU/RSV Start: 11-23-[address] LORI MANNING Comment on above: Performed By: #### H [facility] #### [facility] [address] [place], [place] [address] Dr. Tala Lees Payers Date Payer Category Payer Self-pay [id number] Unknown [id number] Unknown [id number] Social History Date Type Detail Facility Unknown if ever smoked [facility] [employer] Other Sex Assigned At Sex Assigned At Bir th [facility] Other Start: 05-29-2023 Tobacco smoking status NHIS Never smoked tobacco (finding) [facility] Start: 1965 Sex Assigned At Male F [facility] Evaluation note 12-18-2022 Note Date & Type [...] B97.89) Dec, Sore throat (ICD-10 - J02.9) [facility] Other Evaluation note 06-05-2022 Note Date & [...] DM for cough along with prescription medications. [facility] Other Evaluation note 03-29-2022 Note Date & [...] primary care provider to discuss antibiotic therapy [facility] Other Evaluation note 02-20-2021 Note Date & [...] if symptoms worsen or new symptoms occur. [facility] Other Chief complaint+Reason for visit Narrative Note Date & Type Note Facility Chief complaint+Reason for visit Narrative Reason for Visit Contact with and (suspected) exposure to covid-19 Influenza A [facility] Work Phone: Evaluation note Note Date & Type Note Facility Evaluation note No Information [facility] [employer] Other Evaluation note Note Date & Type Note Facility Evaluation note Diagnosis Onset Date Contact with and (suspected) exposure to covid-19 acute Influenza A acute [facility] Work Phone: History general Narrative - Reported Note Date & Type Note Facility History general Narrative - Reported Type Hospitalization History pneumothorax left side [facility] [employer] Other Summary Purpose Family History Relationship Condition Age at Onset Recorded Date/T mingo father Family history of mental disorder Unknown Hypertension Unknown Unknown Not Specified Diabetes mellitus Unknown History of stroke Unknown Advance Directives Advance Directive Response Recorded Date/ Time Advance Directives No May 11:39am Additional Source Comments REASON FOR VISIT (unrecogniz ed section and content) BACK PAINB/A CONGESTION COUG HCOUGH, YELLOW PHLEGMSORE THROAT, COUGH, NO FEVER, MUCUSAntibiotic (unrecognized sect ion and content) No Status Records Found INFORMATION SOURCE (unrecogn ized section and content) DATE CREATED AUTHOR 11/29/2021 [facility] Care Teams (unrecognized sec tion and content) Team Status: Active Member Role Status Dates Kam Manning MD Primary Care Provider Active Team Status: Inactive Member Role Status Dates Maryana Pires NP-C Attending Provider Active S tart: May 29, 2023 End: May 29, 2023 Kam Manning MD Primary Care Provider Active Start: May 29, 2023 End: May 29, 2023 Goals (unrecognized section and content) Goals may be documented in a n alternate section FOR RECORDS PERTAINING TO PATIENTS WHO ARE [...] BE BASED ON THE PRIMARY CLINICAL RECORDS. [employer] [facility]. provides no warranty or guarantee of the accuracy or completeness of information in this document.
--- NOTE | 2024-06-08 16:53 | ECG_ITS ---
[facility] Test Date: 2024-06-08 Pat Name: GIOVANNI DEVLIN Department: Room: - Gender: Male Area Captain: : 1965 Requested By: [id number] Order Number: [id number] Reading MD: CANDIDA ANTHONY Measurements Intervals [place] Rate: 78 P: 51 OK: 178 QRS: 77 QRSD: 88 T: 41 QT: 362 QTc: 395 Interpretive Statements 1100 Sinus rhythm 9110 normal ECG No previous ECG available for comparison Electronically Signed On 06-09-2024 10:35:44 EST by CANDIDA ANTHONY
--- NOTE | 2024-06-08 17:14 | ED_ITS ---
Documented by User: [email or web address] Iglesias 06/08/24 20:55 HPI HPI - General Adult General Chief complaint: Headache Stated complaint: CHEST HEAVINESS, RADIATING, HEADACHE Time Seen by Provider: 06/08/24 17:05 Source: patient and family () Mode of arrival: walk-in Limitations: no limitations History of Present Illness HPI narrative: 58-year-old male presents to the emergency department with with complaint of chest heaviness since around noon today. He had some left arm and left-sided neck pain yesterday, none today. Denies any shortness of breath, diaphoresis, nausea. Denies any prior cardiac history. States mother has had cardiac problems. Denies any history of hypertension, diabetes, cigarette smoking, hyperlipidemia. Quality:?Heaviness Severity:?Moderate Timing:?As above, constant Context: Normal setting and activity? Modifying factors:?None Associated symptoms: None Related Data Home Medications ?Medication ?Instructions ?Recorded ?Confirmed No Known Home Medications 06/08/24 06/08/24 Allergies Allergy/AdvReac Type Severity Reaction Status Date / Time clindamycin AdvReac Mild Verified 05/21/23 20:28 Opioid HPI Opioid Management Most Recent Opioid Data: No Data to Display Review of Systems ROS Narrative CONST: Denies fever, chills HENT: Denies congestion, sore throat EYES: Denies eye redness, visual disturbance RESP: Denies chest tightness, choking, cough, shortness of breath, stridor, wheezing CV: +chest pain.? Denies palpitations, peripheral edema GI: Denies abd pain, nausea, vomiting : Denies dysuria, flank pain MS: Denies back pain, myalgias SKIN: Denies color change, rash NEURO: Denies numbness, weakness PSYCHIATRIC: Denies confusion, agitation PFSH PFSH Social History Smoking status: Never smoker Little interest or pleasure in doing things: not at all Feeling down, depressed, or hopeless: not at all Exam Narrative Exam Narrative: Vital signs reviewed Nurses notes noted CONST: Nontoxic, well appearing, well nourished, in no distress.? No diaphoresis.?? HENT: normocephalic, atraumatic, moist mucous membrane, no abnormalities of the nose noted, hearing normal EYES: normal appearing conjunctiva, no apparent discharge bilat NECK: normal appearance, no JVD CV: normal rate, regular rhythm, no murmur, no peripheral edema RESP: normal effort, speaking in complete sentences. Lung sounds clear and equal bilat.? No wheezes, rales, rhonchi GI: normal bowel sounds, soft, nontender, no distension : no CVA tenderness MS: no edema, tenderness SKIN: no pallor NEURO: A&Ox 3 PSYCH: normal mood, affect Constitutional Vital Signs, click to edit/add: Last Vital Signs Pulse 75 06/08/24 20:50 Resp 22 H 06/08/24 20:50 BP 127/91 06/08/24 19:20 Pulse Ox 98 06/08/24 20:50 Course Reevaluation(s) Reevaluation #1: Discussed with patient and results, plan, and disposition. Patient and are agreeable. Time: 20:45 Vital Signs Vital signs: Vital Signs Pulse Rate 83 06/08/24 15:58 Respiratory Rate 16 06/08/24 15:58 Blood Pressure 152/77 H 06/08/24 15:58 Pulse Oximetry 99 06/08/24 15:58 Pulse Rate 75 06/08/24 20:50 Respiratory Rate 22 H 06/08/24 20:50 Blood Pressure 127/91 06/08/24 19:20 Pulse Oximetry 98 06/08/24 20:50 Medical Decision Making [facility] Narrative Medical decision making narrative: This is a pleasant 58 y/o male who presents to the emergency department for evaluation of chest heaviness On arrival, afebrile, vital signs are stable Exam, nontoxic, well-appearing patient in no distress. Heart regular rate and rhythm. Lung sounds clear and equal bilaterally. EKG reveals no acute or concerning changes IV established, blood work is drawn. Labs reveal no leukocytosis, anemia, thrombocytopenia, electrolyte imbalance, renal impairment. Glucose 92. LFTs, magnesium unremarkable. Serial high-sensitivity troponins x 2 were negative. Chest x-ray reveals no infiltrate, edema, or other acute abnormality. Patient remained stable during ED course Favor nonspecific chest pain ACS less likely based on EKG and biomarkers PE less likely based on neg PERC HEART Pathway for Early Discharge in Acute Chest Pain from [facility] on 06/08/2024 All calculations should be rechecked by clinician prior to use RESULT SUMMARY: 3 points HEART Pathway Score Low risk 0.9-1.7% 30-day MACE Discharge home with outpatient follow-up. INPUTS: History ?> 1 = Moderately suspicious EKG ?> 0 = Normal Age ?> 1 = 45-64 Risk factors ?> 1 = 1-2 risk factors Initial troponin ?> 0 = <=ormal limit History and Record Review Discussion with independent historian: Management Independent interpretation:CXR: no infiltrate, edema, or other acute findings Additional Tests and Interventions ECG:no acute changes Disposition ? The patient was discharged. Plan: Patient will be discharged to home .? Condition at time of disposition: stable.? Advised to follow up with primary provider. Advised to return for any worsening and/or development of new, concerning signs or symptoms Admission considered: neg ACS work up PLEASE NOTE: Portions of the medical record may have been produced using electronic assistant accounting manager and may contain errors with respect to translation of words which may not have been identified prior to finalization of the chart. Medical Records Medical records reviewed: Yes I reviewed the patient's medical records Lab Data Lab results reviewed: Yes I reviewed the patient's lab results Labs: Lab Results 06/08/24 06/08/24 Range/Units 17:10 19:00 WBC 8.9 (4.0-11.0) 10^3/uL RBC 4.87 (4.70-6.10) 10^6/uL Hgb 15.3 (14.0-18.0) g/dL Hct 43.2 (42.0-54.0) % MCV 88.7 (80.0-94.0) fL MCH 31.4 (25.9-34.0) pg MCHC 35.4 H (29.9-35.2) g/dL RDW 12.1 (11.0-15.0) % Plt Count 239 (150-450) 10^3/uL MPV 10.5 (9.5-13.5) fL Neut % (Auto) 73.5 (43.0-75.0) % Lymph % (Auto) 15.7 L (20.5-60.0) % [place] % (Auto) 9.2 (1.7-12.0) % Eos % (Auto) 0.6 L (0.9-7.0) % Baso % (Auto) 0.8 (0.2-2.0) % Neut # (Auto) 6.6 H (1.4-6.5) 10^3/uL Lymph # (Auto) 1.4 (1.2-3.8) 10^3/uL [place] # (Auto) 0.8 (0.3-0.8) 10^3/uL Eos # (Auto) 0.1 (0.0-0.7) 10^3/uL Baso # (Auto) 0.1 (0.0-0.1) 10^3/uL Abs Immat Gran (auto) 0.02 (0.00-0.03) 10^3/uL Imm/Tot Granulo (auto) 0.2 (0.0-0.5) % Sodium 143 (136-145) mmol/L Potassium 3.7 (3.5-5.1) mmol/L Chloride 104 (98-107) mmol/L Carbon Dioxide 30.0 (21.0-32.0) mmol/L Anion Gap 12.7 BUN 17.0 (7.0-18.0) mg/dL Creatinine 1.25 (0.70-1.30) mg/dL Est GFR ( Amer) >60 (>=60 mL/min/1.73m^2) Est GFR (Non-Af Amer) 60 (>=60 mL/min/1.73m^2) BUN/Creatinine Ratio 13.6 Glucose 92 (74-106) mg/dL Calcium 9.0 (8.5-10.1) mg/dL Magnesium 1.9 (1.8-2.4) mg/dL Total Bilirubin 0.6 (0.2-1.0) mg/dL AST 22 (15-37) U/L ALT 51 (16-63) U/L Alkaline Phosphatase 98 (46-116) U/L Troponin I High Sens 4.9 4.3 (4.0-76.1) pg/mL Total Protein 8.2 (6.4-8.2) g/dL Albumin 4.2 (3.4-5.0) g/dL Globulin 4.0 g/dL Albumin/Globulin Ratio 1.0 Lipase 104.0 H (16.0-77.0) U/L Imaging Data Chest x-ray: Attestation: I personally reviewed and interpreted this imaging study as follows: My impression: no infiltrate, edema, or other acute findings ECG Data Attestation: I personally reviewed and interpreted this ECG as follows: (EKG performed at 1601 hrs. reveals sinus rhythm at 70 bpm. Normal axis. No ischemia, ectopy, ST elevation noted. No other additional acute changes are noted) Core Measures AMI core measures followed: Yes Discharge Plan Discharge Chief Complaint: Headache Clinical Impression: Elevated blood pressure reading Chest pain Qualifiers: Chest pain type: other chest pain Qualified Code(s): R07.89 - Other chest pain Patient Disposition: Home, Self-Care Time of Disposition Decision: 20:46 Condition: Good Mode of Transportation: Private Vehicle Prescriptions / Home Meds: No Action No Known Home Medications Print Language: Wallisian Instructions: Chest Pain (ED) Referrals: KAM ADAMS [Primary Care Provider] - 1 week Discharge Date/Time: 06/08/24 20:59 Documented by User: Dani Gonzalez MD 06/09/24 07:35 HPI HPI - General Adult General Chief complaint: Headache Stated complaint: CHEST HEAVINESS, RADIATING, HEADACHE Time Seen by Provider: 06/08/24 17:05 Related Data Home Medications ?Medication ?Instructions ?Recorded ?Confirmed No Known Home Medications 06/08/24 06/08/24 Allergies Allergy/AdvReac Type Severity Reaction Status Date / Time clindamycin AdvReac Mild Verified 05/21/23 20:28 Opioid HPI Opioid Management Most Recent Opioid Data: No Data to Display PFSH PFSH Social History Smoking status: Never smoker Little interest or pleasure in doing things: not at all Feeling down, depressed, or hopeless: not at all Exam Constitutional Vital Signs, click to edit/add: Last Vital Signs Pulse 75 06/08/24 20:50 Resp 22 H 06/08/24 20:50 BP 127/91 06/08/24 19:20 Pulse Ox 98 06/08/24 20:50 Course Vital Signs Vital signs: Vital Signs Pulse Rate 83 06/08/24 15:58 Respiratory Rate 16 06/08/24 15:58 Blood Pressure 152/77 H 06/08/24 15:58 Pulse Oximetry 99 06/08/24 15:58 Pulse Rate 75 06/08/24 20:50 Respiratory Rate 22 H 06/08/24 20:50 Blood Pressure 127/91 06/08/24 19:20 Pulse Oximetry 98 06/08/24 20:50 Medical Decision Making MDM Narrative Medical decision making narrative: This is a pleasant 58 y/o male who presents to the emergency department for evaluation of chest heaviness On arrival, afebrile, vital signs are stable Exam, nontoxic, well-appearing patient in no distress. Heart regular rate and rhythm. Lung sounds clear and equal bilaterally. EKG reveals no acute or concerning changes IV established, blood work is drawn. Labs reveal no leukocytosis, anemia, thrombocytopenia, electrolyte imbalance, renal impairment. Glucose 92. LFTs, magnesium unremarkable. Serial high-sensitivity troponins x 2 were negative. Chest x-ray reveals no infiltrate, edema, or other acute abnormality. Patient remained stable during ED course Favor nonspecific chest pain ACS less likely based on EKG and biomarkers PE less likely based on neg PERC HEART Pathway for Early Discharge in Acute Chest Pain from [facility] on 06/08/2024 All calculations should be rechecked by clinician prior to use RESULT SUMMARY: 3 points HEART Pathway Score Low risk 0.9-1.7% 30-day MACE Discharge home with outpatient follow-up. INPUTS: History ?> 1 = Moderately suspicious EKG ?> 0 = Normal Age ?> 1 = 45-64 Risk factors ?> 1 = 1-2 risk factors Initial troponin ?> 0 = <=ormal limit History and Record Review Discussion with independent historian: Management Independent interpretation:CXR: no infiltrate, edema, or other acute findings Additional Tests and Interventions ECG:no acute changes Disposition ? The patient was discharged. Plan: Patient will be discharged to home .? Condition at time of disposition: stable.? Advised to follow up with primary provider. Advised to return for any worsening and/or development of new, concerning signs or symptoms Admission considered: neg ACS work up PLEASE NOTE: Portions of the medical record may have been produced using electronic assistant accounting manager and may contain errors with respect to translation of words which may not have been identified prior to finalization of the chart. I, Dr Gonzalez, have reviewed the above progress note and course of action in the ER; agree with the above. I have personally gone over history and physical, and discussed disposition and treatment plan with the PA. Lab Data Labs: Lab Results 06/08/24 06/08/24 Range/Units 17:10 19:00 WBC 8.9 (4.0-11.0) 10^3/uL RBC 4.87 (4.70-6.10) 10^6/uL Hgb 15.3 (14.0-18.0) g/dL Hct 43.2 (42.0-54.0) % MCV 88.7 (80.0-94.0) fL MCH 31.4 (25.9-34.0) pg MCHC 35.4 H (29.9-35.2) g/dL RDW 12.1 (11.0-15.0) % Plt Count 239 (150-450) 10^3/uL MPV 10.5 (9.5-13.5) fL Neut % (Auto) 73.5 (43.0-75.0) % Lymph % (Auto) 15.7 L (20.5-60.0) % [place] % (Auto) 9.2 (1.7-12.0) % Eos % (Auto) 0.6 L (0.9-7.0) % Baso % (Auto) 0.8 (0.2-2.0) % Neut # (Auto) 6.6 H (1.4-6.5) 10^3/uL Lymph # (Auto) 1.4 (1.2-3.8) 10^3/uL [place] # (Auto) 0.8 (0.3-0.8) 10^3/uL Eos # (Auto) 0.1 (0.0-0.7) 10^3/uL Baso # (Auto) 0.1 (0.0-0.1) 10^3/uL Abs Immat Gran (auto) 0.02 (0.00-0.03) 10^3/uL Imm/Tot Granulo (auto) 0.2 (0.0-0.5) % Sodium 143 (136-145) mmol/L Potassium 3.7 (3.5-5.1) mmol/L Chloride 104 (98-107) mmol/L Carbon Dioxide 30.0 (21.0-32.0) mmol/L Anion Gap 12.7 BUN 17.0 (7.0-18.0) mg/dL Creatinine 1.25 (0.70-1.30) mg/dL Est GFR ( Amer) >60 (>=60 mL/min/1.73m^2) Est GFR (Non-Af Amer) 60 (>=60 mL/min/1.73m^2) BUN/Creatinine Ratio 13.6 Glucose 92 (74-106) mg/dL Calcium 9.0 (8.5-10.1) mg/dL Magnesium 1.9 (1.8-2.4) mg/dL Total Bilirubin 0.6 (0.2-1.0) mg/dL AST 22 (15-37) U/L ALT 51 (16-63) U/L Alkaline Phosphatase 98 (46-116) U/L Troponin I High Sens 4.9 4.3 (4.0-76.1) pg/mL Total Protein 8.2 (6.4-8.2) g/dL Albumin 4.2 (3.4-5.0) g/dL Globulin 4.0 g/dL Albumin/Globulin Ratio 1.0 Lipase 104.0 H (16.0-77.0) U/L Discharge Plan Discharge Chief Complaint: Headache Clinical Impression: Elevated blood pressure reading Chest pain Qualifiers: Chest pain type: other chest pain Qualified Code(s): R07.89 - Other chest pain Patient Disposition: Home, Self-Care Time of Disposition Decision: 20:46 Condition: Good Mode of Transportation: Private Vehicle Prescriptions / Home Meds: No Action No Known Home Medications Print Language: Wallisian Instructions: Chest Pain (ED) Referrals: KAM ADAMS [Primary Care Provider] - 1 week Discharge Date/Time: 06/08/24 20:59
[2024-06-08] MEDS: ASPIRIN 81 MG TAB.CHEW 324 MG PO (17:24)
[2024-06-08 17:30] LABS: Basophils Absolute Auto 0.1 10^3/uL (0.0-0.1); Basophils Percent Auto 0.8 % (0.2-2.0); Eosinophils Absolute Auto 0.1 10^3/uL (0.0-0.7); Eosinophils Percent Auto 0.6 % (0.9-7.0); Hematocrit 43.2 % (42.0-54.0); Hemoglobin 15.3 g/dL (14.0-18.0); Immature Granulocytes Abs Auto 0.02 10^3/uL (0.00-0.03); Immature Granulocytes Pct Auto 0.2 % (0.0-0.5); Lymphocytes Absolute Auto 1.4 10^3/uL (1.2-3.8); Lymphocytes Percent Auto 15.7 % (20.5-60.0); Mean Corpuscular HGB Conc 35.4 g/dL (29.9-35.2); Mean Corpuscular Hemoglobin 31.4 pg (25.9-34.0); Mean Corpuscular Volume 88.7 fL (80.0-94.0); Mean Platelet Volume 10.5 fL (9.5-13.5); Monocytes Absolute Auto 0.8 10^3/uL (0.3-0.8); Monocytes Percent Auto 9.2 % (1.7-12.0); Neutrophils Absolute Auto 6.6 10^3/uL (1.4-6.5); Neutrophils Percent Auto 73.5 % (43.0-75.0); Platelet Count 239 10^3/uL (150-450); Red Blood Count 4.87 10^6/uL (4.70-6.10); Red Cell Distribution Width 12.1 % (11.0-15.0); White Blood Count 8.9 10^3/uL (4.0-11.0)
[2024-06-08 17:49] LABS: Alanine Aminotransferase 51 U/L (16-63); Albumin Level 4.2 g/dL (3.4-5.0); Alkaline Phosphatase 98 U/L (46-116); Anion Gap 12.7; Aspartate Amino Transferase 22 U/L (15-37); BUN Creatinine Ratio 13.6; Bilirubin Total 0.6 mg/dL (0.2-1.0); Chloride 104 mmol/L (98-107); Estimated GFR (African America >60 (>=60 mL/min/1.73m^2); Estimated GFR (Non-African Ame 60 (>=60 mL/min/1.73m^2); Glucose 92 mg/dL (74-106); Magnesium 1.9 mg/dL (1.8-2.4); Potassium 3.7 mmol/L (3.5-5.1); Sodium 143 mmol/L (136-145); Total Protein 8.2 g/dL (6.4-8.2); Troponin I High Sensitivity 4.9 pg/mL (4.0-76.1)
[2024-06-08 19:22] LABS: Troponin I High Sensitivity 4.3 pg/mL (4.0-76.1)
== END 2024-06-08 20:59 | disposition home or self-care (01) ==
PROVIDERS: Physician Assistant; Emergency Provider Emergency Medicine; PCP Family Medicine
DX: R07.89 Other chest pain (principal); R03.0 Elevated blood-pressure reading, without diagnosis of hypertension; R51.9 Headache, unspecified
CPT/HCPCS: 36415; 71045; 80053; 83690; 83735; 84484; 85025; 93005; 99285

== ENCOUNTER 2024-06-12 06:59 | Outpatient (RCR) | payer OTHER, SELFPAY | END 2024-07-23 07:58 | disposition home or self-care (01) | LOC: PT 06:59 | PROVIDERS: PCP Family Medicine; Visit Provider Family Medicine | DX: M54.50 Low back pain, unspecified (principal) | CPT/HCPCS: 97012; 97110; 97140; 97162 ==

== ENCOUNTER 2024-10-28 07:49 | Outpatient (RCR) | payer OTHER, SELFPAY | END 2024-11-18 06:49 | disposition home or self-care (01) | LOC: PT 07:49 | PROVIDERS: PCP Family Medicine; Visit Provider Family Medicine | DX: M54.50 Low back pain, unspecified (principal) | CPT/HCPCS: 97012; 97110; 97140; 97162 ==